=== PATIENT | male | born 1985 | race Caucasian/White ===

== ENCOUNTER 2016-04-27 17:54 | Emergency (ER) | payer BC | END 2016-04-27 19:57 | disposition left against medical advice (07) | LOC: ER1 17:54 | DX: Z53.21 Procedure and treatment not carried out due to patient leaving prior to being seen by health care provider (principal) ==

== ENCOUNTER 2016-07-30 13:36 | Emergency (ER) | payer BC ==
[2016-07-30 14:44] LABS: HEMOGLOBIN 15.5 gm/dl (14.0-17.5); RED BLOOD COUNT 5.03 M/UL (4.20-5.50); WHITE BLOOD COUNT 10.8 K/UL (4.5-11.0)
[2016-07-30 15:08] LABS: BUN/CREATININE RATIO 14 (0-10)
== END 2016-07-30 16:35 | disposition home or self-care (01) ==
LOC: ER1 13:36
PROVIDERS: Family Medicine
DX: J18.9 Pneumonia, unspecified organism (principal); F17.210 Nicotine dependence, cigarettes, uncomplicated
CPT/HCPCS: 36415; 71020; 80053; 82550; 82553; 83874; 84484; 85025; 93005; 94640; 94664; 99285